=== PATIENT | female | born 1960 | race Hispanic/Latino ===

== ENCOUNTER 2016-06-19 11:10 | Day surgery (SDC) | payer MEDICAID ==
[2016-06-17 10:15] VITALS: BMI 32.1
[2016-06-19 11:37] LABS: ADD MANUAL DIFF? NO
[2016-06-19 11:47] LABS: BASO # 0.01 K/mm3 (0.0-2.0); BASO % 0.1 % (0.0-3.0); EOS # 0.1 (0.0-0.7); EOS % 1.6 % (1.5-5.0); GRAN # 5.66 (1.4-6.5); GRAN % 73.6 % (50.0-68.0); LYMPH # 1.5 (1.2-3.4); LYMPH % 19.2 % (22.0-35.0); MEAN CORPUSCULAR HEMOGLOBIN 30.4 pg (25.0-35.0); MEAN PLATELET VOLUME 9.1 fl (7.0-11.0); MONO # 0.4 (0.1-0.6); MONO % 5.5 % (1.0-6.0); PLATELET COUNT 199 10^3/uL (120.0-450.0); RED CELL DISTRIBUTION WIDTH 13.8 % (11.5-14.5); WHITE BLOOD COUNT 7.7 10^3/ul (4.5-11.0)
[2016-06-19 11:55] LABS: BLOOD UREA NITROGEN 16 mg/dL (7-21); CALCIUM 9.6 mg/dL (8.4-10.5); CARBON DIOXIDE 29 mmol/L (21-33); CHLORIDE 99 mmol/L (98-107); GFR AFRICAN-AMERICAN > 60; GLUCOSE,RANDOM 98 mg/dL (70-110); INR 0.97 (0.93-1.08); PARTIAL THROMBOPLASTIN TIME 29.4 Seconds (23.7-30.8); POTASSIUM 3.9 mmol/L (3.6-5.0); SODIUM 138 mmol/L (132-148)
[2016-06-19 11:56] VITALS: TEMP 97.9
--- NOTE | 2016-06-19 12:22 | CP.SDSHP ---
Same Day Surgery H & P - History Proposed Procedure: Cat scan guided axillary biopsy Pre-Op Diagnosis: Lung Ca - Previous Medical/Surgical History Pulmonary: Smoking (Smoked 1PPD X 30 years,quit in 2015 ) Endocrine/Metabolic: Obesity Misc: Other (history of lung ca,diagnosed in 2015 treated with Chemo/adiation) Comments: Recent Pet scan showed activity in Lymph Nodes Previous Surgical History: L arm port in and out. x 3. Pilonidal cyst. Lung biopsy - Allergies Allergies: Allergies No Known Allergies Allergy (Verified 11/27/15 15:42) - Physical Exam General Appearance: Well nourished female Vital Signs: Vital Signs 06/19/16 11:55 Temperature 97.9 F Pulse Rate 87 Respiratory 20 Rate Blood Pressure 145/79 O2 Sat by Pulse 98 Oximetry Mental Status: Alert & Oriented x3 Neuro: WNL Heart: WNL Lungs: WNL - {Optional Preform as Required} Abdomen: WNL - Impression Impression: Lung Ca - Date & Time Date: 06/19/16 Time: 12:23 Short Stay Discharge - Short Stay Discharge Admitting Diagnosis/Reason for Visit: LUNG CA C34.90 Disposition: HOME/ ROUTINE Referrals: Linda Palacio MD [Primary Care Provider] -
[2016-06-19] MEDS ORDERED: Midazolam 2 MG/2 ML VIAL ONE (13:23)
[2016-06-19] MEDS ORDERED: Oxycodone/Acetaminophen 5/325 mg Tab PO PRN (14:09)
[2016-06-19] MEDS ORDERED: Sodium Chloride 0.45% 1,000 ML IV SCH (14:15)
[2016-06-19 16:51] VITALS: BP 119/64; PULSE 72; RESP 20; O2SAT 95
--- NOTE | 2016-06-19 19:51 | CT ---
PROCEDURE: CT guided right axillary lymph node biopsy. HISTORY: Lung carcinoma. Bilateral axillary lymph nodes with positive PET. Evaluate for metastatic disease. PHYSICIAN(S): Azam Lion MD. TECHNIQUE: The relative risks and indications of the procedure were explained to the patient and consent obtained. The patient was placed supine on the CT scanner and preliminary images through the right axilla obtained. Conscious sedation and monitoring were provided throughout the procedure by a nurse. There is a 16 mm enlarged lymph node in the right axilla. This node had increased activity on the recent PET CT.. A right anterior oblique approach was selected and the area prepped and draped in the usual sterile fashion. 1% Xylocaine was used to anesthetize the skin and soft tissues. A 17-gauge guiding needle was advanced into the 16 mm right axillary lymph node. Its position was confirmed with CT. Using coaxial technique, multiple core biopsies were obtained. The postprocedure images show no evidence of significant hemorrhage. IMPRESSION: 1. CT-guided right axillary lymph node biopsy as described above.
== END 2016-06-19 17:36 | disposition home or self-care (01) ==
LOC: SDS 11:10
PROVIDERS: ATTEND Radiology Vascular & Interventional Radiology
DX: C34.90 Malignant neoplasm of unspecified part of unspecified bronchus or lung (principal); R59.0 Localized enlarged lymph nodes; Z87.891 Personal history of nicotine dependence; E66.9 Obesity, unspecified
CPT/HCPCS: 36415; 38505; 77012; 80048; 85025; 85610; 85730; 88305; J2250; J2405; J3010; J7030

== ENCOUNTER 2018-04-09 07:49 | Outpatient (CLI) | payer MEDICARE, MEDICAID | END 2018-04-09 07:50 | disposition home or self-care (01) | LOC: RAD 07:49 ==